=== PATIENT | female | born 1980 | race American Indian/Alaskan Native ===

== ENCOUNTER 2018-04-12 17:18 | Emergency (ER) | payer MEDICAID ==
[2018-04-12] MEDS ORDERED: REGLAN IV ONE (17:51)
[2018-04-12] MEDS ORDERED: TORADOL IV ONE (17:51)
[2018-04-12] MEDS ORDERED: NACL 0.9% 1000 ML 1,000 ML IV ONE (17:51)
[2018-04-12] MEDS ORDERED: BENADRYL IV ONE (17:51)
--- NOTE | 2018-04-12 17:56 | Emergency Department Report ---
ED General Adult HPI - General Chief complaint: Neuro Symptoms/Deficit Stated complaint: NUMBNESS BODY PAIN Time Seen by Provider: 04/12/18 17:38 Source: patient, EMS Mode of arrival: Stretcher Limitations: No Limitations - History of Present Illness Initial comments: 37-year-old female presents to the ED with headache 3 days. Patient states pain is retro-orbital and also in bilateral temporal regions. Patient denies nausea or vomiting. Reports photophobia. Patient also reports cough, with pain to chest and back which is worse with the cough. Denies abdominal pain. Patient reported pain to lift hip which is an exacerbation of chronic hip pain which was sustained while patient was in the . Patient reporting intermittent paresthesias to bilateral hands and feet as well. History of asthma. Patient states she has been taking Tylenol at home without relief. Denies any sick contacts. -: days(s) (3) Location: head, chest, back, pelvis Severity scale (0 -10): 9 Quality: aching Consistency: intermittent Improves with: none Worsens with: movement Associated Symptoms: chest pain, cough, fever/chills, headaches. denies: nausea/vomiting, shortness of breath Treatments Prior to Arrival: other (tylenol) - Related Data Previous Rx's Medication Instructions Recorded Last Taken Type Benzonatate [Tessalon Perles] 100 mg PO Q8HR PRN #20 capsule 04/12/18 Unknown Rx Butalb/Acetamin/Caff 50-325-40 1 tab PO Q6HR PRN #10 tab 04/12/18 Unknown Rx [Fioricet] Naproxen [Naprosyn] 500 mg PO BID #20 tablet 04/12/18 Unknown Rx Allergies Allergy/AdvReac Type Severity Reaction Status Date / Time No Known Allergies Allergy Unverified 04/12/18 17:33 ED Review of Systems ROS: Stated complaint: NUMBNESS BODY PAIN Other details as noted in HPI Comment: All other systems reviewed and negative Constitutional: chills, fever Respiratory: cough. denies: shortness of breath Cardiovascular: chest pain (with cough) Gastrointestinal: denies: abdominal pain, nausea, vomiting, diarrhea Genitourinary: denies: dysuria, frequency Neurological: headache, paresthesias ED Past Medical Hx - Past Medical History Previous Medical History?: Yes Hx Asthma: Yes - Social History Smoking Status: Current Some Day Smoker - Medications Home Medications: Home Medications Medication Instructions Recorded Confirmed Last Taken Type Benzonatate [Tessalon Perles] 100 mg PO Q8HR PRN #20 capsule 04/12/18 Unknown Rx Butalb/Acetamin/Caff 50-325-40 1 tab PO Q6HR PRN #10 tab 04/12/18 Unknown Rx [Fioricet] Naproxen [Naprosyn] 500 mg PO BID #20 tablet 04/12/18 Unknown Rx ED Physical Exam - General Limitations: No Limitations General appearance: alert, in no apparent distress - Head Head exam: Present: atraumatic, normocephalic - Eye Eye exam: Present: normal appearance - ENT ENT exam: Present: mucous membranes moist - Neck Neck exam: Present: normal inspection - Respiratory Respiratory exam: Present: normal lung sounds bilaterally. Absent: respiratory distress - Cardiovascular Cardiovascular Exam: Present: regular rate, normal rhythm - GI/Abdominal GI/Abdominal exam: Present: soft. Absent: distended, tenderness - Extremities Exam Extremities exam: Present: other (tenderness to left hip) - Neurological Exam Neurological exam: Present: alert, oriented X3, CN II-XII intact. Absent: motor sensory deficit - Psychiatric Psychiatric exam: Present: normal affect, normal mood - Skin Skin exam: Present: warm, dry, intact, normal color. Absent: rash ED Course Vital Signs 04/12/18 04/12/18 04/12/18 17:28 19:20 20:45 Temperature 100.1 F H 98.8 F Pulse Rate 88 78 86 Respiratory 20 16 16 Rate Blood Pressure 124/50 116/73 101/62 [Left] O2 Sat by Pulse 99 98 97 Oximetry ED Medical Decision Making - Lab Data Result diagrams: 04/12/18 18:01 04/12/18 18:01 - Radiology Data Radiology results: report reviewed, image reviewed CT Head: neg acute CXR: neg acute * tech issues with radiology; results faxed, however not crossing over into [email or web address] - Medical Decision Making 37-year-old female is low-grade fever, headache, cough, body aches 3 days. Influenza testing negative. Labs unremarkable. CT head and chest x-ray both negative. Given IV fluids, Toradol, Reglan, Benadryl. Patient reports improvement of her symptoms, feeling much better at this time. States photophobia has resolved. Patient with no neuro deficits on exam. Likely viral illness. Will give prescriptions for Naprosyn, Tessalon, Fioricet. Outpatient follow-up advised. Return precautions given. - Differential Diagnosis intracranial bleed, URI, pneumonia, UTI, viral illness, migraine Critical care attestation.: If time is entered above; I have spent that time in minutes in the direct care of this critically ill patient, excluding procedure time. ED Disposition Clinical Impression: Viral respiratory illness Disposition: TO HOME OR SELFCARE Is pt being admited?: No Condition: Stable Instructions: Viral Syndrome (ED) Prescriptions: Benzonatate [Tessalon Perles] 100 mg PO Q8HR PRN #20 capsule PRN Reason: Cough Butalb/Acetamin/Caff 50-325-40 [Fioricet] 1 tab PO Q6HR PRN #10 tab PRN Reason: Headache Naproxen [Naprosyn] 500 mg PO BID #20 tablet Referrals: [facility] MD GARETH [Primary Care Provider] - 3-5 Days PRIMARY CAREMD [Referring] - 3-5 Days Time of Disposition: 21:25
[2018-04-12 18:33] LABS: BUN/Creatinine Ratio 11; Blood Urea Nitrogen 8 mg/dL (7-17); Calcium 8.3 mg/dL (8.4-10.2); Hemolysis Index 14
[2018-04-12 18:44] LABS: Basophils # (Auto) 0.1 K/mm3 (0.0-0.1); Basophils % (Auto) 1.8 % (0.0-1.8); Eosinophils # (Auto) 0.1 K/mm3 (0.0-0.4); Eosinophils % (Auto) 1.2 % (0.0-4.3); Hematocrit 39.9 % (30.3-42.9); Hemoglobin 13.6 gm/dl (10.1-14.3); Lymphocytes # (Auto) 1.3 K/mm3 (1.2-5.4); Lymphocytes % (Auto) 18.5 % (13.4-35.0); Mean Corpuscular HGB Conc 34 % (30-34); Mean Corpuscular Volume 93 fl (79-97); Monocytes # (Auto) 0.5 K/mm3 (0.0-0.8); Monocytes % (Auto) 7.5 % (0.0-7.3); Platelet Count 208 K/mm3 (140-440); Red Cell Distribution Width 14.2 % (13.2-15.2)
[2018-04-12] MEDS ORDERED: TYLENOL PO ONE (19:25)
[2018-04-12 20:35] LABS: Bacteria,Urine 1+ /HPF (Negative); Bilirubin,Urine NEG (Negative); Blood,Urine MOD (Negative); Color,Urine Yellow (Yellow); Mucus,Urine FEW /HPF; Protein,Urine <15 mg/dL mg/dL (Negative); Urobilinogen,Urine < 2.0 mg/dL (<2.0)
[2018-04-12 20:46] VITALS: BP 101/62
--- NOTE | 2018-04-14 15:56 | XRay Report ---
FINAL REPORT EXAM: XR CHEST 1V AP HISTORY: cough TECHNIQUE: AP portable view of the chest PRIORS: None. FINDINGS: Lines, tubes, and devices: N/A Lungs and pleura: Trachea is normal in position. Lungs are clear of infiltrate, pleural effusion, vas cular congestion, or pneumothorax. Cardiomediastinal silhouette: Cardiac and mediastinal silhouettes are unremarkable. Other: Bony structures are intact. IMPRESSION: No acute cardiopulmonary process seen.
--- NOTE | 2018-04-15 08:16 | Cat Scan Report ---
FINAL REPORT EXAM: CT HEAD/BRAIN WO CON HISTORY: headache TECHNIQUE: Standard unenhanced CT of the head at 5.0 millimeter axial increments. PRIORS: None. FINDINGS: The ventricular system is normal in size and configuration. There is no evidence for parenchymal volu me loss. There is no evidence for mass lesion, mass effect, midline shift, acute intracranial hemorrhage, or a cute ischemia/ infarction. Visualized paranasal sinuses demonstrates opacification of several bilateral ethmoid air cells. IMPRESSION: No acute intracranial process noted.
== END 2018-04-12 21:49 | disposition home or self-care (01) ==
LOC: ED 17:18
DX: B34.9 Viral infection, unspecified (principal); J45.909 Unspecified asthma, uncomplicated; F17.200 Nicotine dependence, unspecified, uncomplicated
CPT/HCPCS: 36415; 70450; 71045; 80048; 81001; 84702; 85025; 87400; 96374; 96375; 99285; J1200; J1885; J2765; J7030